=== PATIENT | male | born 1970 | race African-American/Black ===

== ENCOUNTER 2022-04-23 14:04 | Emergency (ER) | payer OTHER, MEDICAID ==
[~2022-04-23] VITALS: Ht 175.3 cm; Wt 103.0 kg
[~2022-04-23 14:04] MED LIST: NAPR-1176 MT
[2022-04-23 17:45] VITALS: BP 154/109
[2022-04-23] MEDS ORDERED: TETANUS, DIPHTHERIA, PERTUSSIS VAC/PF 0.5ML (>10YR OLD) IM ONE (17:45)
[2022-04-23] MEDS ORDERED: LIDOCAINE HCL/PF 1% 10 MG/ML 5ML VIAL INFIL ONE (17:45)
[2022-04-23] MEDS ORDERED: IBUPROFEN 600MG TABLET PO ONE (17:45)
[2022-04-23] MEDS ORDERED: BACITRACIN ZINC OINT UDPKT TOP ONE (17:45)
[2022-04-23] MEDS ORDERED: CEPH500C2 PO (18:35)
[2022-04-23] MEDS ORDERED: LEVO750T46 PO (18:35)
[2022-04-23] MEDS ORDERED: IBUP-2029 PO (18:37)
== END 2022-04-23 18:50 | disposition home or self-care (01) ==
LOC: ER 14:40
DX: S61.243A Puncture wound with foreign body of left middle finger without damage to nail, initial encounter (principal); X58.XXXA Exposure to other specified factors, initial encounter; Y93.89 Activity, other specified; Y92.89 Other specified places as the place of occurrence of the external cause; I10 Essential (primary) hypertension
CPT/HCPCS: 73140; 90471; 90715; 99283; J3490

== ENCOUNTER 2022-07-25 11:36 | Emergency (ER) | payer OTHER, MEDICAID ==
[~2022-07-25] VITALS: Ht 175.3 cm; Wt 105.0 kg
[~2022-07-25 11:36] MED LIST changes: +CEPH500C2 PO; +IBUP-2029 PO; +LEVO750T46 PO
[2022-07-25 12:17] VITALS: BP 129/69
[2022-07-25] MEDS ORDERED: TRAM50TA3 MT ×2 (15:40→15:42)
[2022-07-25] MEDS ORDERED: CEFAZOLIN SODIUM 1000MG/VIAL IM ONE (15:45)
== END 2022-07-25 16:26 | disposition home or self-care (01) ==
LOC: ER 11:36
DX: K02.9 Dental caries, unspecified (principal); F17.290 Nicotine dependence, other tobacco product, uncomplicated; I10 Essential (primary) hypertension; Z98.890 Other specified postprocedural states
CPT/HCPCS: 96372; 99283; 99406; J0690